=== PATIENT | female | born 1995 | race Caucasian/White ===

== ENCOUNTER 2018-08-12 17:42 | Emergency (ER) | payer OTHER ==
[~2018-08-12] VITALS: Ht 165.1 cm; Wt 108.9 kg
[2018-08-12 17:55] VITALS: BP 120/71
--- NOTE | 2018-08-12 18:02 | NUR ---
PT C/O LOWER ABD PAIN X1 DAY, REPORTS BLOATING, 6/10 SHARP PAIN. DENIES N/V/D; SKIN IS PINK/WARM/DRY; AAOX4 WITH EVEN AND STEADY GAIT; LUNGS CLEAR BL; HR EVEN AND REGULAR; PT DENIES ANY FEVER, CP, SOB, OR COUGH AT THIS TIME; VSS; PATIENT POSITIONED FOR COMFORT; HOB ELEVATED; BEDRAILS UP X2; BED DOWN. ER MD MADE AWARE OF PT STATUS.
[2018-08-12 18:32] VITALS: BP 120/71
--- NOTE | 2018-08-12 18:49 | NUR ---
PATIENT STATES NO NEEDS AT THIS TIME.
--- NOTE | 2018-08-12 19:10 | NUR ---
REPORT RECEIVED FROM LAWRENCE RAMIRES
--- NOTE | 2018-08-12 19:16 | NUR ---
Dr. Ramos evaluating patient at bedside.
--- NOTE | 2018-08-12 19:48 | NUR ---
Patient discharged with v/s stable. Written and verbal after care instructions given and explained. Patient alert, oriented and verbalized understanding of instructions. Ambulatory with steady gait. All questions addressed prior to discharge. ID band removed. Patient advised to follow up with PMD. Rx of MOTRIN, IMODIUM AND ZOFRAN given. Patient educated on indication of medication including possible reaction and side effects. Opportunity to ask questions provided and answered.
== END 2018-08-12 19:48 | disposition home or self-care (01) ==
LOC: MED 17:42
DX: R10.30 Lower abdominal pain, unspecified (principal); R11.0 Nausea; R19.7 Diarrhea, unspecified
CPT/HCPCS: 81002; 81025; 99283